=== PATIENT | male | born 1995 | race Caucasian/White ===

== ENCOUNTER 2017-08-13 15:31 | Emergency (ER) | payer OTHER, BC ==
[2017-08-13 15:44] VITALS: TEMP 97
[2017-08-13] MEDS ORDERED: LIDOCAINE HCL 1% MPF SOL ONE (16:05)
[2017-08-13] MEDS ORDERED: LIDOCAINE HCL 1% MDV SOL SC ONE (16:19)
[2017-08-13] MEDS ORDERED: TDAP VACCINE 0.5 ML SUS IM ONE ×2 (16:21→16:35)
[2017-08-13] MEDS ORDERED: BACITRACIN 500 U/GM OIN TOP ONE ×2 (16:36→16:38)
[2017-08-13 17:08] VITALS: BP 126/79; PULSE 83; O2SAT 99
== END 2017-08-13 17:00 | disposition home or self-care (01) | DRG 605 ==
LOC: ED 15:31
DX: S61.412A Laceration without foreign body of left hand, initial encounter (principal); W45.8XXA Other foreign body or object entering through skin, initial encounter
CPT/HCPCS: 12002; 90471; 90715; 99284; J2001